=== PATIENT | female | born 1980 | race Two or more races ===

== ENCOUNTER 2022-02-02 19:25 | Inpatient (IN) | payer OTHER ==
[~2022-02-02] VITALS: Ht 152.4 cm; Wt 117.9 kg
[2022-02-02] MEDS ORDERED: METFORMIN HCL850 MG PO (20:41)
[2022-02-06] MEDS ORDERED: METFORMIN HCL750 MG (11:05)
[2022-02-06] MEDS ORDERED: CETIRIZINE HCL10 MG (11:05)
[2022-02-06] MEDS ORDERED: FLONASE16 GM (11:05)
[2022-02-06] MEDS ORDERED: FLUCONAZOLE150 MG (11:05)
[2022-02-06] MEDS ORDERED: UBRELVY50 MG (11:05)
[2022-02-06] MEDS ORDERED: TRESIBA FL100 UNIT/1 (11:05)
[2022-02-06] MEDS ORDERED: LOSARTAN POTASS25 MG (11:05)
[2022-02-06] MEDS ORDERED: LYUMJEV KW100 UNIT/1 (11:05)
[2022-02-06] MEDS ORDERED: CYANOCOBAL1000 MCG/1 (11:05)
[2022-02-06] MEDS ORDERED: OZEMPIC0.25 MG/0. (11:06)
== END 2022-02-06 11:40 | disposition left against medical advice (07) | DRG 558 ==
LOC: ER 19:25 → SEC-K 02-04 05:08 → MEDJ 02-04 10:02
PROVIDERS: ADMIT Internal Medicine; ATTEND Internal Medicine
DX: M62.82 Rhabdomyolysis (principal); E87.6 Hypokalemia; Z20.822 Contact with and (suspected) exposure to COVID-19